=== PATIENT | female | born 1960 | race Caucasian/White ===

== ENCOUNTER 2017-06-24 15:41 | Emergency (ER) | payer SELFPAY ==
[2017-06-24 16:02] VITALS: BP 145/82
--- NOTE | 2017-06-24 16:53 | ER Document Report ---
ED Medical Screen (RME) - General Chief Complaint: Chest Pain Stated Complaint: CHEST PAIN Time Seen by Provider: 06/24/17 16:48 Mode of Arrival: Ambulatory Information source: Patient Notes: 56-year-old female with a history of hypertension, hyperlipidemia (not currently on medication) viral meningitis 2006 presents with complaints of fever , headache, fatigue, intermittent sharp chest pain. Patient reports chronic neck and shoulder pain that have felt worse over the last few weeks. She has been taking Naprosyn, Tylenol and Advil as needed for her fevers which she reports have been intermittent. Patient denies sore throat, cough, nausea, vomiting, abdominal pain. I have greeted and performed a rapid medical assessment of the patient. A comprehensive evaluation and assessment will be performed by another ED provider. Medical decision making, lab review/xrays if performed will be reviewed by the ED provider assuming care of the patient. PHYSICAL EXAMINATION: GENERAL: Ill-appearing but not toxic. HEAD: Atraumatic, normocephalic. EYES: Pupils equal round extraocular movements intact, conjunctiva are normal. ENT: Nares patent NECK: Normal range of motion LUNGS: No respiratory distress Musculoskeletal: Normal range of motion NEUROLOGICAL: Normal speech, normal gait. PSYCH: Normal mood, normal affect. SKIN: Warm, Dry, normal turgor, no rashes or lesions noted. TRAVEL OUTSIDE OF THE [place] IN LAST 30 DAYS: No - HPI Onset: Other Onset/Duration: Gradual, Intermittent Quality of pain: Achy Severity: Mild Associated Symptoms: Body/muscle aches, Chills, Fever, Headache. denies: Abdominal pain, Cough (nonproductive) Exacerbated by: Denies Relieved by: Denies Similar symptoms previously: Yes Recently seen / treated by doctor: No - Related Data Smoking: Cigarettes Frequency of alcohol use: None Drug Abuse: None Allergies/Adverse Reactions: No Known Allergies Allergy (Unverified 06/24/17 15:41) Past Medical History - Social History Chew tobacco use (# tins/day): No Frequency of alcohol use: None Drug Abuse: None Renal/ Medical History: Denies: Hx Peritoneal Dialysis Physical Exam - Vital signs Vitals: Temp Pulse Resp BP Pulse Ox 100.1 F 114 H 16 145/82 H 94 06/24/17 15:58 06/24/17 15:58 06/24/17 15:58 06/24/17 15:58 06/24/17 15:58 Course - Vital Signs Vital signs: Temp Pulse Resp BP Pulse Ox 100.1 F 114 H 16 145/82 H 94 06/24/17 15:58 06/24/17 15:58 06/24/17 15:58 06/24/17 15:58 06/24/17 15:58
[2017-06-24 17:29] LABS: ABSOLUTE EOSINOPHILS # (AUTO) 0.7 10^3/uL (0.0-0.6); ABSOLUTE LYMPHOCYTES (AUTO) 3.7 10^3/uL (0.5-4.7); ABSOLUTE MONOCYTES (AUTO) 0.7 10^3/uL (0.1-1.4); ABSOLUTE NEUT (AUTO) 6.9 10^3/uL (1.7-8.2); BASOPHILS % (AUTO) 0.2 % (0-2); EOSINOPHILS % (AUTO) 5.8 % (0-6); HEMATOCRIT 47.6 % (36.0-47.0); HEMOGLOBIN 15.9 g/dL (12.0-15.5); LYMPHOCYTES % (AUTO) 30.8 % (13-45); MEAN CORPUSCULAR HEMOGLOBIN 28.6 pg (27.0-33.4); MEAN CORPUSCULAR HGB CONC 33.4 g/dL (32.0-36.0); MEAN CORPUSCULAR VOLUME 86 fl (80-97); MONOCYTES % (AUTO) 5.6 % (3-13); PLATELET COUNT 295 10^3/uL (150-450); RED BLOOD COUNT 5.56 10^6/uL (3.72-5.28); RED CELL DISTRIBUTION WIDTH 14.2 % (11.5-14.0); SEGMENTED NEUTROPHILS % (AUTO) 57.6 % (42-78); TOTAL CELLS COUNTED % (AUTO) 100 %; WHITE BLOOD COUNT 11.9 10^3/uL (4.0-10.5)
[2017-06-24 17:45] LABS: ALANINE AMINOTRANSFERASE 47 U/L (9-52); ALBUMIN 4.2 g/dL (3.5-5.0); ALKALINE PHOSPHATASE 107 U/L (38-126); ANION GAP 13 (5-19); ASPARTATE AMINO TRANSFERASE 27 U/L (14-36); BILIRUBIN,DIRECT 0.3 mg/dL (0.0-0.4); BILIRUBIN,TOTAL 0.8 mg/dL (0.2-1.3); BLOOD UREA NITROGEN 13 mg/dL (7-20); CALCIUM 9.4 mg/dL (8.4-10.2); CARBON DIOXIDE 30 mmol/L (22-30); CHLORIDE 100 mmol/L (98-107); GLUCOSE 95 mg/dL (75-110); POTASSIUM 4.3 mmol/L (3.6-5.0); SODIUM 142.6 mmol/L (137-145); TOTAL PROTEIN 7.1 g/dL (6.3-8.2)
[2017-06-24 17:46] LABS: CREATINE KINASE < 20 U/L (30-135)
[2017-06-24 17:56] LABS: CREATINE KINASE MB < 0.22 ng/mL (<4.55); TROPONIN I < 0.012 ng/mL
--- NOTE | 2017-06-24 18:04 | RADIOLOGY REPORT (SQ) ---
EXAM DESCRIPTION: CHEST 2 VIEWS COMPLETED DATE/TIME: 06/24/2017 5:43 pm REASON FOR STUDY: chest pain COMPARISON: None. EXAM PARAMETERS: NUMBER OF VIEWS: two views TECHNIQUE: Digital Frontal and Lateral radiographic views of the chest acquired. RADIATION DOSE: NA LIMITATIONS: none FINDINGS: LUNGS AND PLEURA: No opacities, masses or pneumothorax. No pleural effusion. MEDIASTINUM AND HILAR STRUCTURES: No masses or contour abnormalities. HEART AND VASCULAR STRUCTURES: Borderline heart size. Pulmonary vascular prominence. No sudha failu re. BONES: No acute findings. HARDWARE: None in the chest. OTHER: No other significant finding. IMPRESSION: Borderline cardiomegaly with pulmonary vascular prominence but no sudha CHF. TECHNICAL DOCUMENTATION: JOB ID: [id number] [employer]- All Rights Reserved Reading location - IP/workstation name: [email or web address]
[2017-06-24] MEDS ORDERED: NORMAL SALINE 1000 ML 1,000 ML IV ONE (19:37)
--- NOTE | 2017-06-24 19:48 | ER Document Report ---
ED General - General Chief Complaint: Chest Pain Stated Complaint: CHEST PAIN Time Seen by Provider: 06/24/17 16:48 Mode of Arrival: Ambulatory Information source: Patient TRAVEL OUTSIDE OF THE [place] IN LAST 30 DAYS: No - HPI Patient complains to provider of: "I'm exhausted" Onset: Other - last 2 weeks Associated symptoms: Body/muscle aches, Chills, Fever, Headache, Sore throat. denies: Productive cough, Diarrhea, Hurts to breath, Nausea, Vomiting, Shortness of breath Similar symptoms previously: Yes Recently seen / treated by doctor: Yes - dxed with strep throat on Notes: Patient sitting up in bed when I took her history. She states that "I am exhausted". No nausea vomiting or diarrhea. Patient states she does have mild photophobia if she looks to the late for too long. She states she is currently on amoxicillin since for strep throat which was diagnosed as an outpatient. She states she has a dull global headache. No slurred speech or other strokelike symptoms. Patient states that she gets sharp chest pains which "happen all the time". She states they only last a few seconds. Past medical history significant for viral meningitis diabetes hypertension high cholesterol past surgical history is significant for cholecystectomy patient does not have a primary medical doctor. Socially she smokes tobacco and she drinks on hollowing. Family history dad had a CABG and mom has kidney stones. States her last dose of anti-inflammatories was at around 2 PM today. - Related Data Allergies/Adverse Reactions: No Known Allergies Allergy (Unverified 06/24/17 15:41) Past Medical History - General Information source: Patient - Social History Smoking Status: Current Every Day Smoker Chew tobacco use (# tins/day): No Frequency of alcohol use: None Drug Abuse: None Lives with: Family Family History: CAD, Other - kidney stones Patient has suicidal ideation: No Patient has homicidal ideation: No - Past Medical History Cardiac Medical History: Reports: Hx Hypertension Pulmonary Medical History: Reports: None Neurological Medical History: Reports: None Endocrine Medical History: Reports: None Renal/ Medical History: Reports: None. Denies: Hx Peritoneal Dialysis Malignancy Medical History: Reports: None GI Medical History: Reports: None Musculoskeltal Medical History: Reports None Psychiatric Medical History: Reports: None Past Surgical History: Reports: Hx Cholecystectomy Review of Systems - Review of Systems Constitutional: Chills, Fever EENT: Throat pain. denies: Eye pain, Eye discharge, Blurred vision, Nose congestion, Nose discharge, Throat swelling Cardiovascular: Chest pain Respiratory: No symptoms reported Gastrointestinal: No symptoms reported Genitourinary: No symptoms reported Female Genitourinary: No symptoms reported Musculoskeletal: Muscle pain, Neck pain Skin: No symptoms reported Hematologic/Lymphatic: No symptoms reported Neurological/Psychological: Headaches Physical Exam - Vital signs Vitals: Temp Pulse Resp BP Pulse Ox 100.1 F 114 H 16 145/82 H 94 06/24/17 15:58 06/24/17 15:58 06/24/17 15:58 06/24/17 15:58 06/24/17 15:58 - Notes Notes: PHYSICAL EXAMINATION: GENERAL: Well-appearing, well-nourished and in no acute distress. HEAD: Atraumatic, normocephalic. EYES: Pupils equal round and reactive to light, extraocular movements intact, conjunctiva are normal. Nystagmus. ENT: Nares patent, oropharynx clear without exudates. Moist mucous membranes. Is within normal limits bilaterally. NECK: Normal range of motion, supple without lymphadenopathy no meningeal signs LUNGS: Breath sounds clear to auscultation bilaterally and equal. No wheezes rales or rhonchi. HEART:Tachy and regular rhythm without murmurs ABDOMEN: Soft, nontender, nondistended abdomen. No guarding, no rebound. No masses appreciated. Female : deferred Musculoskeletal: Normal range of motion, no pitting or edema. No cyanosis. NEUROLOGICAL: Cranial nerves grossly intact. Normal speech, normal gait. Normal sensory, motor exams PSYCH: Normal mood, normal affect. SKIN: Warm, Dry, normal turgor, no rashes or lesions noted. Course - Re-evaluation Re-evalutation: 06/24/17 19:50 I did discuss with the patient as well as her children that were bedside that in light of the fact that she was on amoxicillin and still getting fevers let me to be concerned. I stated I could not rule out partially treated infection including viral or bacterial meningitis. I stated to her I needed to get the results of her urine as well as her CT of her head and do a lumbar puncture. At first the patient did not want a lumbar puncture then when I repeated my explanation of why he needed it she did agree. She stated she needed a cigarette prior to the procedure. I did tell her that she is not able to go outside and smoke cigarettes as an inpatient. She stated she needed to get up and go to the bathroom. I did on her echo from the surveillance system monitor. I went to order the CAT scan of the head as well as IV fluids and get the consent for lumbar puncture. Patient was found trying to get out of the hospital through the ambulance bay. I did go back and speak to the patient. She states she is going home she does not want any of this done at this time and she will return tomorrow if need be. I did again reiterate to the patient that I was concerned in light of the fact that she was having fevers and headaches and was on amoxicillin. I did tell her that the strep throat could be partially treated and that could be why she is febrile but I could not rule out meningitis or another infectious etiology. I did tell her that if she went home tonight she could have a bad outcome including but not limited to . Patient verbalized understanding. I did tell her children to check in on her quite often as a live right down the street. I told her to return to the emergency department any time for remainder of the workup. All questions were answered patient states "I know it is my responsibility to leave and I need to sign the papers". Patient was alert and oriented cranial nerves II to XII grossly intact she had the capacity to make this decision. Patient left AMA - Vital Signs Vital signs: Temp Pulse Resp BP Pulse Ox 100.1 F 114 H 16 145/82 H 94 06/24/17 15:58 06/24/17 15:58 06/24/17 15:58 06/24/17 15:58 06/24/17 15:58 - Laboratory Result Diagrams: 06/24/17 17:10 06/24/17 17:10 Laboratory results interpreted by me: 06/24/17 06/24/17 17:10 17:10 WBC 11.9 H RBC 5.56 H Hgb 15.9 H Hct 47.6 H RDW 14.2 H Absolute Eosinophils 0.7 H Creatine Kinase < 20 L Discharge - Discharge Clinical Impression: Left against medical advice Additional Instructions: She was instructed to come back at any time for continuation of her workup after being encouraged to stay in the hospital tonight and refusing.
[2017-06-24 19:52] LABS: INTERNATIONAL RATION (INR) 0.88; PROTHROMBIN TIME 12.4 SEC (11.4-15.4)
--- NOTE | 2017-06-24 22:53 | EKG REPORT ---
SEVERITY:- ABNORMAL ECG - SINUS TACHYCARDIA ELIA, CONSIDER BIATRIAL ABNORMALITIES BORDERLINE INFERIOR Q WAVES : Confirmed by: Juan C Rocha 24-Jun-2017 19:52:42
== END 2017-06-24 19:47 | disposition left against medical advice (07) ==
LOC: ER 15:41
DX: R07.9 Chest pain, unspecified (principal); R51 Headache; M79.1 Myalgia; F17.200 Nicotine dependence, unspecified, uncomplicated; Z95.1 Presence of aortocoronary bypass graft; Z90.49 Acquired absence of other specified parts of digestive tract
CPT/HCPCS: 36415; 71046; 80053; 82550; 82553; 84484; 85025; 85610; 87040; 93005; 93010; 99285